=== PATIENT | male | born 1935 | race Caucasian/White ===

== ENCOUNTER 2022-05-30 09:34 | Observation (INO) | payer MEDICARE, BC ==
[2022-05-30 10:17] LABS: #Eosinphils 0.5 thou/uL (0.0-0.7); #Lymphocytes 1.7 thou/uL (1.20-3.40); #Monocytes 0.6 thou/uL (0.11-0.59); #Neutrophils 2.7 thou/uL (1.40-6.50); %Eosinophils 8.9 % (0.0-10.0); %Monocytes 11.2 % (0.0-10.0); %Neutrophils 48.9 % (42.0-75.0); Hemoglobin 12.4 g/dL (14.0-18.0); Mean Corpuscular HGB CONC 32.9 g/dL (32.0-36.0); Mean Corpuscular Hemoglobin 31.9 pg (27.0-31.0); Mean Corpuscular Volume 96.9 fl (78.0-98.0); Mean Platelet Volume 8.2 fL (7.4-10.4); Platelet Count 123 10x3/uL (130-400); RBC Distribution Width 12.6 % (11.5-14.5); Red Blood Cell (RBC) Count 3.89 mill/uL (4.70-6.10); White Blood Cell (WBC) Count 5.5 10x3/uL (4.8-10.8)
[2022-05-30 10:39] LABS: ALT (SGPT) 12 U/L (8-55); AST (SGOT) 23 U/L (5-34); Albumin 3.9 g/dL (3.4-4.8); Alkaline Phosphatase 70 U/L (40-110); Anion Gap 11 mmol/L (10-20); BUN (Urea Nitrogen) 20 mg/dL (8.4-25.7); Bilirubin, Total 0.8 mg/dL (0.2-1.2); Calc. Creatinine Clearance 0 mL/min (70-130); Calcium 8.8 mg/dL (7.8-10.44); Carbon Dioxide 28 mmol/L (23-31); Chloride 109 mmol/L (98-107); Estimated GFR 65; Glucose 88 mg/dL (83-110); Lipase 84 U/L (8-78); Potassium 4.5 mmol/L (3.5-5.1); Protein, Total 6.9 g/dL (5.8-8.1); Sodium 143 mmol/L (136-145)
[2022-05-30 11:02] LABS: CKMB 1.7 ng/mL (0-6.6)
[2022-05-30] MEDS ORDERED: Acetaminophen 325 MG TAB PO PRN (12:40)
[2022-05-30] MEDS ORDERED: Aspirin Chewable 81 MG TAB ONE (16:41)
[2022-05-30 17:58] VITALS: BMI 18.9
[2022-05-30 18:09] LABS: Troponin I 0.026 ng/mL (< 0.028)
[2022-05-30 21:23] LABS: Troponin I 0.034 ng/mL (< 0.028)
[2022-05-31 04:58] LABS: #Eosinphils 0.4 thou/uL (0.0-0.7); #Lymphocytes 1.6 thou/uL (1.20-3.40); #Monocytes 0.6 thou/uL (0.11-0.59); #Neutrophils 2.6 thou/uL (1.40-6.50); %Basophils 0.2 % (0.0-1.0); %Eosinophils 7.4 % (0.0-10.0); %Lymphocytes 30.9 % (21.0-51.0); %Monocytes 10.6 % (0.0-10.0); %Neutrophils 50.8 % (42.0-75.0); Hemoglobin 11.9 g/dL (14.0-18.0); Mean Corpuscular HGB CONC 33.4 g/dL (32.0-36.0); Mean Corpuscular Hemoglobin 32.2 pg (27.0-31.0); Mean Corpuscular Volume 96.7 fl (78.0-98.0); Mean Platelet Volume 8.4 fL (7.4-10.4); Platelet Count 122 10x3/uL (130-400); RBC Distribution Width 12.6 % (11.5-14.5); Red Blood Cell (RBC) Count 3.69 mill/uL (4.70-6.10); White Blood Cell (WBC) Count 5.2 10x3/uL (4.8-10.8)
[2022-05-31 05:10] LABS: Anion Gap 11 mmol/L (10-20); BUN (Urea Nitrogen) 23 mg/dL (8.4-25.7); Calc. Creatinine Clearance 31 mL/min (70-130); Carbon Dioxide 26 mmol/L (23-31); Chloride 109 mmol/L (98-107); Potassium 4.6 mmol/L (3.5-5.1); Sodium 141 mmol/L (136-145)
[2022-05-31 05:11] LABS: Calcium 8.4 mg/dL (7.8-10.44); Estimated GFR 50; Glucose 83 mg/dL (83-110)
[2022-05-31] MEDS ORDERED: Ezetimibe 10 MG TAB PO SCH (09:00)
[2022-05-31] MEDS ORDERED: Aspirin 81 mg Enteric Coated Tablet PO SCH (09:00)
[2022-05-31] MEDS ORDERED: Carvedilol 25 MG TAB PO SCH (09:00)
[2022-05-31] MEDS ORDERED: Aspirin Chewable 81 MG TAB PO SCH (09:00)
[2022-05-31] MEDS ORDERED: Atorvastatin Calcium 40 MG TAB PO SCH (09:00)
[2022-05-31] MEDS ORDERED: Apixaban 2.5 MG TAB PO SCH (09:00)
[2022-05-31] MEDS ORDERED: ADENOSINE 60 MG/20 ML VIAL ONE (11:06)
[2022-05-31 13:17] VITALS: BP 136/63; TEMP 97.8
[2022-06-01] MEDS ORDERED: Digoxin 0.125 MG TAB PO SCH (09:00)
== END 2022-05-31 16:34 | disposition home or self-care (01) ==
LOC: ERS 09:34 → ERHOLD 12:41 → 2SW 17:42
PROVIDERS: ADMIT Internal Medicine; ATTEND Internal Medicine
DX: R07.89 Other chest pain (principal); I25.10 Atherosclerotic heart disease of native coronary artery without angina pectoris; I10 Essential (primary) hypertension; I25.2 Old myocardial infarction; K21.9 Gastro-esophageal reflux disease without esophagitis; Z79.01 Long term (current) use of anticoagulants; Z79.82 Long term (current) use of aspirin; Z79.83 Long term (current) use of bisphosphonates; Z79.899 Other long term (current) drug therapy; Z95.1 Presence of aortocoronary bypass graft; Z95.810 Presence of automatic (implantable) cardiac defibrillator; Z20.822 Contact with and (suspected) exposure to COVID-19
CPT/HCPCS: 71045; 78452; 80048; 80053; 82553; 83690; 84484 ×2; 85025 ×2; 93005; 93017; 93306; 94760; 99285; A9500; G0378 ×3; U0003; U0005; 36415; J0153

== ENCOUNTER 2023-01-22 08:32 | Inpatient (IN) | payer MEDICARE, BC ==
[2023-01-22] MEDS ORDERED: Ketorolac Tromethamine 30 MG/ML VIAL ONE (09:20)
[2023-01-22 09:52] LABS: #Eosinphils 0.6 thou/uL (0.0-0.7); #Neutrophils 3.5 thou/uL (1.40-6.50); %Basophils 0.5 % (0.0-1.0); %Eosinophils 8.6 % (0.0-10.0); %Monocytes 14.5 % (0.0-10.0); %Neutrophils 52.9 % (42.0-75.0); Hematocrit 39.9 % (42.0-52.0); Hemoglobin 12.8 g/dL (14.0-18.0); Mean Corpuscular HGB CONC 32.1 g/dL (32.0-36.0); Mean Corpuscular Hemoglobin 31.6 pg (27.0-31.0); Mean Corpuscular Volume 98.5 fl (78.0-98.0); Platelet Count 187 10x3/uL (130-400); RBC Distribution Width 15.1 % (11.5-14.5); Red Blood Cell (RBC) Count 4.05 mill/uL (4.70-6.10); White Blood Cell (WBC) Count 6.6 10x3/uL (4.8-10.8)
[2023-01-22 10:12] LABS: SARS-CoV-2 NAA Rapid Test Not Detected (NotDetected)
[2023-01-22 10:20] LABS: ALT (SGPT) 15 U/L (8-55); AST (SGOT) 33 U/L (5-34); Albumin 3.9 g/dL (3.4-4.8); Alkaline Phosphatase 97 U/L (40-110); Anion Gap 13 mmol/L (10-20); BUN (Urea Nitrogen) 22 mg/dL (8.4-25.7); Bilirubin, Total 0.5 mg/dL (0.2-1.2); Calc. Creatinine Clearance 0 mL/min (70-130); Calcium 10.9 mg/dL (7.8-10.44); Carbon Dioxide 26 mmol/L (23-31); Chloride 108 mmol/L (98-107); Estimated GFR 38; Globulin 3.6 g/dL (2.4-3.5); Glucose 97 mg/dL (83-110); Potassium 4.5 mmol/L (3.5-5.1); Protein, Total 7.5 g/dL (5.8-8.1); Sodium 142 mmol/L (136-145)
[2023-01-22 10:21] LABS: Bacteria/HPF None Seen HPF (None Seen); Bilirubin Negative (Negative); Blood, Urine 2+ (Negative); CAUTI Indications for Culture Immunosuppressed; Clarity Clear (Clear); Glucose, Urine (Dipstick) Normal (Negative); Ketone, Urine Negative (Negative); Leukocyte Negative Leu/uL (Negative); Nitrite Negative (Negative); Protein, Urine (Dipstick) 100 mg/dL (Neg-Trace); RBC/HPF 0-3 HPF (0-3); Specific Gravity, Urine 1.028 (1.002-1.036); Squamous Epithelial 0-3 HPF (0-3); Urobilinogen Normal mg/dL (Less than 2)
[2023-01-22 10:22] LABS: Urine Culture Reflex Yes Yes
[2023-01-22 10:29] LABS: Troponin I 1.007 ng/mL (< 0.028)
[2023-01-22] MEDS ORDERED: Calcium Carbonate 500 MG ChewTAB PO PRN (11:59)
[2023-01-22] MEDS ORDERED: Senokot S 8.6-50 MG TAB PO PRN (11:59)
[2023-01-22] MEDS ORDERED: Ondansetron PF 4 MG/2 ML Vial IVP PRN (11:59)
[2023-01-22] MEDS ORDERED: Acetaminophen 325 MG TAB PO PRN (11:59)
[2023-01-22] MEDS ORDERED: Furosemide 40 MG/4 ML VIAL ONE (12:28)
[2023-01-22 13:35] LABS: Troponin I 0.878 ng/mL (< 0.028)
[2023-01-22] MEDS: Furosemide 40 MG/4 ML VIAL SLOW IVP SCH (15:57)
[2023-01-22 17:34] LABS: Troponin I 0.817 ng/mL (< 0.028)
[2023-01-22] MEDS: Carvedilol 25 MG TAB PO SCH (18:22)
[2023-01-23 05:59] LABS: #Eosinphils 0.5 thou/uL (0.0-0.7); #Monocytes 0.8 thou/uL (0.11-0.59); %Basophils 0.5 % (0.0-1.0); %Eosinophils 8.7 % (0.0-10.0); %Lymphocytes 26.2 % (21.0-51.0); %Monocytes 13.7 % (0.0-10.0); %Neutrophils 50.6 % (42.0-75.0); Hematocrit 39.3 % (42.0-52.0); Hemoglobin 12.4 g/dL (14.0-18.0); Mean Corpuscular HGB CONC 31.6 g/dL (32.0-36.0); Mean Corpuscular Hemoglobin 31.5 pg (27.0-31.0); Mean Corpuscular Volume 99.7 fl (78.0-98.0); Mean Platelet Volume 10.7 fL (7.4-10.4); Platelet Count 198 10x3/uL (130-400); RBC Distribution Width 15.2 % (11.5-14.5); Red Blood Cell (RBC) Count 3.94 mill/uL (4.70-6.10); White Blood Cell (WBC) Count 5.8 10x3/uL (4.8-10.8)
[2023-01-23 06:06] LABS: Hemoglobin A1c 5.6 % (4.0-6.0)
[2023-01-23] MEDS: Furosemide 40 MG/4 ML VIAL SLOW IVP SCH ×2 (06:24→15:09)
[2023-01-23 06:27] LABS: Digoxin 2.02 ng/mL (0.8-2.0)
[2023-01-23 06:29] LABS: ALT (SGPT) 12 U/L (8-55); AST (SGOT) 22 U/L (5-34); Albumin 3.5 g/dL (3.4-4.8); Alkaline Phosphatase 88 U/L (40-110); Anion Gap 12 mmol/L (10-20); BUN (Urea Nitrogen) 26 mg/dL (8.4-25.7); Bilirubin, Total 0.5 mg/dL (0.2-1.2); Calc. Creatinine Clearance 22 mL/min (70-130); Calcium 10.7 mg/dL (7.8-10.44); Carbon Dioxide 28 mmol/L (23-31); Cardiac Risk 3.8 (Less than 4.5); Chloride 106 mmol/L (98-107); Cholesterol 106 mg/dl (< 200 Desired); Estimated GFR 35; Globulin 2.8 g/dL (2.4-3.5); Glucose 82 mg/dL (83-110); HDL Cholesterol 28 mg/dL (>60 Neg Risk); LDL Cholesterol, Calculated 58 mg/dL; Magnesium 1.9 mg/dL (1.6-2.6); Potassium 3.7 mmol/L (3.5-5.1); Protein, Total 6.3 g/dL (5.8-8.1); Sodium 142 mmol/L (136-145); Triglycerides 102 mg/dL (Less than 150)
[2023-01-23] MEDS: Ezetimibe 10 MG TAB PO SCH (08:33)
[2023-01-23] MEDS: Atorvastatin Calcium 40 MG TAB PO SCH (08:33)
[2023-01-23] MEDS: Aspirin 81 mg Enteric Coated Tablet PO SCH (08:33)
[2023-01-23] MEDS: Carvedilol 25 MG TAB PO SCH ×2 (08:33→15:10)
[2023-01-23] MEDS ORDERED: Digoxin 0.125 MG TAB PO SCH (09:00)
[2023-01-23] MEDS ORDERED: Amiodarone 200 MG TAB PO SCH (09:15)
[2023-01-23] MEDS ORDERED: Polyethylene Glycol 3350 17 GM Packet PO PRN (09:20)
[2023-01-23] MEDS: Amiodarone 200 MG TAB PO SCH (20:16)
[2023-01-24 04:51] LABS: Anion Gap 12 mmol/L (10-20); BUN (Urea Nitrogen) 30 mg/dL (8.4-25.7); Calc. Creatinine Clearance 20 mL/min (70-130); Calcium 10.5 mg/dL (7.8-10.44); Carbon Dioxide 28 mmol/L (23-31); Chloride 105 mmol/L (98-107); Estimated GFR 32; Glucose 94 mg/dL (83-110); Potassium 3.4 mmol/L (3.5-5.1); Sodium 142 mmol/L (136-145)
[2023-01-24] MEDS: Furosemide 40 MG/4 ML VIAL SLOW IVP SCH (05:31)
[2023-01-24] MEDS ORDERED: Potassium Chloride 20 MEQ TAB PO SCH (08:00)
[2023-01-24] MEDS: Ezetimibe 10 MG TAB PO SCH (08:44)
[2023-01-24] MEDS: Aspirin 81 mg Enteric Coated Tablet PO SCH (08:44)
[2023-01-24] MEDS: Carvedilol 25 MG TAB PO SCH ×2 (08:44→16:37)
[2023-01-24] MEDS: Atorvastatin Calcium 40 MG TAB PO SCH (08:44)
[2023-01-24] MEDS: Amiodarone 200 MG TAB PO SCH ×2 (08:45→20:42)
[2023-01-24 10:24] LABS: Phosphorus 3.7 mg/dL (2.3-4.7)
[2023-01-24 22:31] LABS: Creatinine, Urine 91.68 mg/dL (63-166)
[2023-01-25 05:53] LABS: Anion Gap 12 mmol/L (10-20); BUN (Urea Nitrogen) 29 mg/dL (8.4-25.7); Calc. Creatinine Clearance 19 mL/min (70-130); Calcium 10.6 mg/dL (7.8-10.44); Carbon Dioxide 27 mmol/L (23-31); Chloride 104 mmol/L (98-107); Estimated GFR 31; Glucose 94 mg/dL (83-110); Potassium 3.8 mmol/L (3.5-5.1); Sodium 139 mmol/L (136-145)
[2023-01-25] MEDS: Aspirin 81 mg Enteric Coated Tablet PO SCH (09:00)
[2023-01-25] MEDS: Apixaban 2.5 MG TAB PO SCH ×2 (09:00→20:39)
[2023-01-25] MEDS: Ezetimibe 10 MG TAB PO SCH (09:00)
[2023-01-25] MEDS: Amiodarone 200 MG TAB PO SCH ×2 (09:00→20:39)
[2023-01-25] MEDS: Carvedilol 25 MG TAB PO SCH ×2 (09:01→17:49)
[2023-01-25] MEDS: Atorvastatin Calcium 40 MG TAB PO SCH (09:01)
[2023-01-25 15:46] VITALS: BMI 17.6
[2023-01-26 04:44] LABS: #Eosinphils 0.3 thou/uL (0.0-0.7); #Monocytes 0.9 thou/uL (0.11-0.59); #Neutrophils 3.4 thou/uL (1.40-6.50); %Basophils 0.3 % (0.0-1.0); %Eosinophils 5.3 % (0.0-10.0); %Monocytes 15.1 % (0.0-10.0); Hematocrit 34.8 % (42.0-52.0); Hemoglobin 11.3 g/dL (14.0-18.0); Mean Corpuscular HGB CONC 32.5 g/dL (32.0-36.0); Mean Corpuscular Hemoglobin 31.8 pg (27.0-31.0); Mean Platelet Volume 10.5 fL (7.4-10.4); Platelet Count 156 10x3/uL (130-400); RBC Distribution Width 15.2 % (11.5-14.5); Red Blood Cell (RBC) Count 3.55 mill/uL (4.70-6.10); White Blood Cell (WBC) Count 6.1 10x3/uL (4.8-10.8)
[2023-01-26 05:11] LABS: Anion Gap 11 mmol/L (10-20); BUN (Urea Nitrogen) 33 mg/dL (8.4-25.7); Calc. Creatinine Clearance 19 mL/min (70-130); Calcium 10.7 mg/dL (7.8-10.44); Carbon Dioxide 28 mmol/L (23-31); Chloride 105 mmol/L (98-107); Estimated GFR 32; Glucose 94 mg/dL (83-110); Potassium 3.9 mmol/L (3.5-5.1); Sodium 140 mmol/L (136-145)
[2023-01-26] MEDS: Atorvastatin Calcium 40 MG TAB PO SCH (08:58)
[2023-01-26] MEDS: Apixaban 2.5 MG TAB PO SCH (08:58)
[2023-01-26] MEDS: Aspirin 81 mg Enteric Coated Tablet PO SCH (08:58)
[2023-01-26] MEDS: Carvedilol 25 MG TAB PO SCH (08:58)
[2023-01-26] MEDS: Amiodarone 200 MG TAB PO SCH (08:59)
[2023-01-26] MEDS: Ezetimibe 10 MG TAB PO SCH (08:59)
[2023-01-26 12:14] VITALS: BP 122/61; TEMP 97.7
[2023-01-26] MEDS ORDERED: Zoledronic Acid 4 MG in Sodium Chloride 0.9% 100 ML IVPB SCH (13:00)
[2023-01-26] MEDS ORDERED: Calcitonin,Salmon,Synthetic 400 UNITS/2 ML SC SCH (14:15)
[2023-01-27] MEDS ORDERED: Furosemide 20 MG TAB PO SCH (09:00)
[2023-02-06] MEDS ORDERED: Amiodarone 200 MG TAB PO SCH (09:00)
[2023-02-20] MEDS ORDERED: Amiodarone 200 MG TAB PO SCH (09:00)
== END 2023-01-26 15:29 | disposition home or self-care (01) | DRG 280 ==
LOC: ERS 08:32 → SUATTDRO 08:32 → 2NO 11:49
PROVIDERS: ADMIT Internal Medicine; ATTEND Internal Medicine
DX: I13.0 Hypertensive heart and chronic kidney disease with heart failure and stage 1 through stage 4 chronic kidney disease, or unspecified chronic kidney disease (principal); I21.A1 Myocardial infarction type 2; I50.23 Acute on chronic systolic (congestive) heart failure; N17.9 Acute kidney failure, unspecified; J44.9 Chronic obstructive pulmonary disease, unspecified; I25.10 Atherosclerotic heart disease of native coronary artery without angina pectoris; I48.91 Unspecified atrial fibrillation; E78.5 Hyperlipidemia, unspecified; G89.29 Other chronic pain; I48.0 Paroxysmal atrial fibrillation; D63.1 Anemia in chronic kidney disease; E83.52 Hypercalcemia; E87.6 Hypokalemia; N18.30 Chronic kidney disease, stage 3 unspecified; Z95.1 Presence of aortocoronary bypass graft; Z95.810 Presence of automatic (implantable) cardiac defibrillator; Z79.899 Other long term (current) drug therapy; Z98.890 Other specified postprocedural states; Z79.82 Long term (current) use of aspirin; Z20.822 Contact with and (suspected) exposure to COVID-19
CPT/HCPCS: 36415; 71045; 72100; 76770; 80048; 80053; 80061; 80162; 81001; 82306; 82570; 82652; 83036; 83605; 83735; 83880; 83883; 83970; 84100; 84155; 84156; 84165; 84166; 84300; 84443; 84484; 84540; 85025; 87040; 87086; 93005; 93306; 93798; 96372; 96374; 96375; J1650; J1885; J1940

== ENCOUNTER 2023-02-23 09:31 | Inpatient (IN) | payer MEDICARE, BC ==
[2023-02-23 11:37] LABS: Bacteria/HPF None Seen HPF (None Seen); Bilirubin Negative (Negative); Blood, Urine 2+ (Negative); CAUTI Indications for Culture Dysuria,urgency,freq; Clarity Clear (Clear); Glucose, Urine (Dipstick) Normal (Negative); Ketone, Urine Negative (Negative); Leukocyte Negative Leu/uL (Negative); Nitrite Negative (Negative); Protein, Urine (Dipstick) 50 mg/dL (Neg-Trace); RBC/HPF 0-3 HPF (0-3); Specific Gravity, Urine 1.019 (1.002-1.036); Squamous Epithelial 0-3 HPF (0-3); Urobilinogen Normal mg/dL (Less than 2); WBC/HPF 0-3 HPF (0-3); pH, Urine 5.5 (5.0-9.0)
[2023-02-23 11:38] LABS: Urine Culture Reflex No No
[2023-02-23] MEDS ORDERED: Acetaminophen 325 MG TAB PO PRN (12:34)
[2023-02-23] MEDS ORDERED: Ondansetron ODT 4 MG TAB PO PRN (12:34)
[2023-02-23] MEDS ORDERED: traMADol HCl 50 MG TAB PO PRN (16:32)
[2023-02-23] MEDS: Sodium Chloride 0.9% 1,000 ML IV SCH (18:26)
[2023-02-23 19:18] LABS: Creatinine, Urine 85.22 mg/dL (63-166)
[2023-02-24 05:46] LABS: #Eosinphils 0.3 thou/uL (0.0-0.7); #Neutrophils 12.1 thou/uL (1.40-6.50); %Basophils 0.1 % (0.0-1.0); %Eosinophils 2.2 % (0.0-10.0); %Monocytes 6.8 % (0.0-10.0); %Neutrophils 85.8 % (42.0-75.0); Hematocrit 31.9 % (42.0-52.0); Hemoglobin 10.5 g/dL (14.0-18.0); Mean Corpuscular HGB CONC 32.9 g/dL (32.0-36.0); Mean Corpuscular Hemoglobin 32.1 pg (27.0-31.0); Mean Corpuscular Volume 97.6 fl (78.0-98.0); Platelet Count 200 10x3/uL (130-400); RBC Distribution Width 15.4 % (11.5-14.5); Red Blood Cell (RBC) Count 3.27 mill/uL (4.70-6.10); White Blood Cell (WBC) Count 14.1 10x3/uL (4.8-10.8)
[2023-02-24] MEDS: Sodium Chloride 0.9% 1,000 ML IV SCH ×2 (06:03→20:16)
[2023-02-24 06:12] LABS: ALT (SGPT) 93 U/L (8-55); AST (SGOT) 62 U/L (5-34); Albumin 3.1 g/dL (3.4-4.8); Alkaline Phosphatase 66 U/L (40-110); Anion Gap 13 mmol/L (10-20); BUN (Urea Nitrogen) 72 mg/dL (8.4-25.7); Bilirubin, Total 0.5 mg/dL (0.2-1.2); Calc. Creatinine Clearance 12 mL/min (70-130); Calcium 7.9 mg/dL (7.8-10.44); Carbon Dioxide 24 mmol/L (23-31); Chloride 109 mmol/L (98-107); Estimated GFR 17; Globulin 2.2 g/dL (2.4-3.5); Glucose 93 mg/dL (83-110); Potassium 3.5 mmol/L (3.5-5.1); Protein, Total 5.3 g/dL (5.8-8.1); Sodium 142 mmol/L (136-145)
[2023-02-24] MEDS: Dexamethasone 4 MG TAB PO SCH (09:38)
[2023-02-24 13:23] VITALS: BMI 17.1
[2023-02-24] MEDS: Carvedilol 25 MG TAB PO SCH (20:16)
[2023-02-25] MEDS: Dexamethasone 4 MG TAB PO SCH (08:46)
[2023-02-25] MEDS: Sodium Chloride 0.9% 1,000 ML IV SCH ×2 (08:48→20:04)
[2023-02-25] MEDS: Carvedilol 25 MG TAB PO SCH ×2 (08:53→20:05)
[2023-02-25] MEDS ORDERED: Atorvastatin Calcium 40 MG TAB PO SCH (09:00)
[2023-02-25] MEDS ORDERED: Ezetimibe 10 MG TAB PO SCH (09:00)
[2023-02-25 10:45] LABS: Anion Gap 15 mmol/L (10-20); BUN (Urea Nitrogen) 62 mg/dL (8.4-25.7); Calc. Creatinine Clearance 14 mL/min (70-130); Calcium 7.7 mg/dL (7.8-10.44); Carbon Dioxide 17 mmol/L (23-31); Chloride 111 mmol/L (98-107); Estimated GFR 21; Glucose 215 mg/dL (83-110); Potassium 4.1 mmol/L (3.5-5.1); Sodium 139 mmol/L (136-145)
[2023-02-25] MEDS: Ezetimibe 10 MG TAB PO SCH (20:05)
[2023-02-25] MEDS: Atorvastatin Calcium 40 MG TAB PO SCH (20:05)
[2023-02-26 06:07] LABS: #Eosinphils 0.1 thou/uL (0.0-0.7); #Monocytes 0.6 thou/uL (0.11-0.59); #Neutrophils 16.2 thou/uL (1.40-6.50); %Basophils 0.2 % (0.0-1.0); %Eosinophils 0.4 % (0.0-10.0); %Lymphocytes 3.4 % (21.0-51.0); %Monocytes 3.1 % (0.0-10.0); %Neutrophils 90.4 % (42.0-75.0); Hematocrit 38.3 % (42.0-52.0); Hemoglobin 12.7 g/dL (14.0-18.0); Mean Corpuscular HGB CONC 33.2 g/dL (32.0-36.0); Mean Corpuscular Hemoglobin 32.5 pg (27.0-31.0); Mean Platelet Volume 10.6 fL (7.4-10.4); Platelet Count 250 10x3/uL (130-400); RBC Distribution Width 15.8 % (11.5-14.5); Red Blood Cell (RBC) Count 3.91 mill/uL (4.70-6.10); White Blood Cell (WBC) Count 17.9 10x3/uL (4.8-10.8)
[2023-02-26 06:37] LABS: Anion Gap 17 mmol/L (10-20); BUN (Urea Nitrogen) 63 mg/dL (8.4-25.7); Calc. Creatinine Clearance 15 mL/min (70-130); Calcium 7.9 mg/dL (7.8-10.44); Carbon Dioxide 18 mmol/L (23-31); Chloride 112 mmol/L (98-107); Estimated GFR 24; Glucose 120 mg/dL (83-110); Potassium 4.8 mmol/L (3.5-5.1); Sodium 142 mmol/L (136-145)
[2023-02-26] MEDS: Carvedilol 25 MG TAB PO SCH ×2 (08:38→21:04)
[2023-02-26] MEDS: Dexamethasone 4 MG TAB PO SCH (09:18)
[2023-02-26] MEDS: Sodium Chloride 0.9% 1,000 ML IV SCH (09:21)
[2023-02-26] MEDS ORDERED: Sodium Chloride 0.9% 1,000 ML IV SCH (10:42)
[2023-02-26 15:13] LABS: IFE-Serum Interpretation Note: (.); IgA - Total IgA (Sendout) 21 mg/dL (61-437); Immunoglobulin - G (Sendout) 629 mg/dL (603-1613); Immunoglobulin - M (Sendout) 12 mg/dL (15-143)
[2023-02-26 16:13] LABS: A/G Ratio 1.4 (0.7-1.7); Albumin 2.7 g/dL (2.9-4.4); Alpha 1 0.2 g/dL (0.0-0.4); Alpha 2 0.6 g/dL (0.4-1.0); Beta 0.6 g/dL (0.7-1.3); Gamma 0.6 g/dL (0.4-1.8); M-Spike Note: g/dL (Not Observed)
[2023-02-26] MEDS ORDERED: Furosemide 40 MG/4 ML VIAL SLOW IVP SCH (16:30)
[2023-02-26 20:37] LABS: Beta-2-Microglobulin 5.7 mg/L (0.6-2.4)
[2023-02-26] MEDS: Ezetimibe 10 MG TAB PO SCH (21:04)
[2023-02-26] MEDS: Atorvastatin Calcium 40 MG TAB PO SCH (21:04)
[2023-02-26] MEDS: Ipratropium/Albuterol 3 ML NEB NEB PRN (21:32)
[2023-02-27] MEDS ORDERED: Furosemide 20 MG/2 ML VIAL SLOW IVP SCH ×2 (01:00→09:30)
[2023-02-27] MEDS: Ipratropium/Albuterol 3 ML NEB NEB PRN ×3 (02:04→22:39)
[2023-02-27 05:11] LABS: #Monocytes 0.5 thou/uL (0.11-0.59); #Neutrophils 16.2 thou/uL (1.40-6.50); %Basophils 0.1 % (0.0-1.0); %Lymphocytes 1.6 % (21.0-51.0); %Monocytes 2.9 % (0.0-10.0); %Neutrophils 93.5 % (42.0-75.0); Hemoglobin 12.5 g/dL (14.0-18.0); Mean Corpuscular HGB CONC 32.9 g/dL (32.0-36.0); Mean Corpuscular Hemoglobin 32.2 pg (27.0-31.0); Mean Corpuscular Volume 97.9 fl (78.0-98.0); Mean Platelet Volume 10.4 fL (7.4-10.4); Platelet Count 219 10x3/uL (130-400); RBC Distribution Width 15.7 % (11.5-14.5); Red Blood Cell (RBC) Count 3.88 mill/uL (4.70-6.10); White Blood Cell (WBC) Count 17.3 10x3/uL (4.8-10.8)
[2023-02-27 05:31] LABS: Anion Gap 14 mmol/L (10-20); BUN (Urea Nitrogen) 70 mg/dL (8.4-25.7); Calc. Creatinine Clearance 15 mL/min (70-130); Calcium 7.7 mg/dL (7.8-10.44); Carbon Dioxide 20 mmol/L (23-31); Chloride 112 mmol/L (98-107); Estimated GFR 23; Glucose 132 mg/dL (83-110); Potassium 4.2 mmol/L (3.5-5.1); Sodium 142 mmol/L (136-145)
[2023-02-27] MEDS: Dexamethasone 4 MG TAB PO SCH (08:33)
[2023-02-27] MEDS: valACYclovir 500 MG TAB PO SCH (08:33)
[2023-02-27] MEDS: Carvedilol 25 MG TAB PO SCH ×2 (08:34→21:15)
[2023-02-27 15:14] LABS: Kappa Light Chains 7.4 mg/L (3.3-19.4)
[2023-02-27] MEDS: Ezetimibe 10 MG TAB PO SCH (21:15)
[2023-02-27] MEDS: Apixaban 2.5 MG TAB PO SCH (21:15)
[2023-02-27] MEDS: Atorvastatin Calcium 40 MG TAB PO SCH (21:15)
[2023-02-28] MEDS: Furosemide 20 MG/2 ML VIAL SLOW IVP SCH ×2 (04:57→14:38)
[2023-02-28 05:35] LABS: #Monocytes 0.4 thou/uL (0.11-0.59); #Neutrophils 15.1 thou/uL (1.40-6.50); %Basophils 0.1 % (0.0-1.0); %Lymphocytes 1.9 % (21.0-51.0); %Monocytes 2.5 % (0.0-10.0); %Neutrophils 93.5 % (42.0-75.0); Hemoglobin 11.4 g/dL (14.0-18.0); Mean Corpuscular HGB CONC 33.5 g/dL (32.0-36.0); Mean Corpuscular Hemoglobin 32.4 pg (27.0-31.0); Mean Corpuscular Volume 96.6 fl (78.0-98.0); Mean Platelet Volume 10.5 fL (7.4-10.4); Platelet Count 184 10x3/uL (130-400); RBC Distribution Width 15.6 % (11.5-14.5); Red Blood Cell (RBC) Count 3.52 mill/uL (4.70-6.10); White Blood Cell (WBC) Count 16.1 10x3/uL (4.8-10.8)
[2023-02-28 07:19] LABS: Anion Gap 13 mmol/L (10-20); BUN (Urea Nitrogen) 70 mg/dL (8.4-25.7); Calc. Creatinine Clearance 14 mL/min (70-130); Calcium 7.4 mg/dL (7.8-10.44); Carbon Dioxide 23 mmol/L (23-31); Chloride 109 mmol/L (98-107); Estimated GFR 22; Glucose 130 mg/dL (83-110); Sodium 141 mmol/L (136-145)
[2023-02-28] MEDS ORDERED: Furosemide 20 MG/2 ML VIAL SLOW IVP SCH (09:00)
[2023-02-28] MEDS: Carvedilol 25 MG TAB PO SCH (09:20)
[2023-02-28] MEDS: Amiodarone 200 MG TAB PO SCH (09:20)
[2023-02-28] MEDS: valACYclovir 500 MG TAB PO SCH (09:20)
[2023-02-28] MEDS: Apixaban 2.5 MG TAB PO SCH ×2 (09:21→20:31)
[2023-02-28] MEDS: Aspirin 81 mg Enteric Coated Tablet PO SCH (09:21)
[2023-02-28] MEDS: Carvedilol 6.25 MG TAB PO SCH (20:31)
[2023-02-28] MEDS: Ezetimibe 10 MG TAB PO SCH (20:31)
[2023-02-28] MEDS: Atorvastatin Calcium 40 MG TAB PO SCH (20:31)
[2023-03-01] MEDS ORDERED: Dexamethasone Sod Phosphate 20 MG in Sodium Chloride 0.9% 50 ML IVPB SCH (00:01)
[2023-03-01] MEDS: Furosemide 20 MG/2 ML VIAL SLOW IVP SCH ×2 (06:00→15:11)
[2023-03-01 06:07] LABS: #Monocytes 0.7 thou/uL (0.11-0.59); #Neutrophils 14.6 thou/uL (1.40-6.50); %Basophils 0.1 % (0.0-1.0); %Monocytes 4.3 % (0.0-10.0); %Neutrophils 92.2 % (42.0-75.0); Hematocrit 34.9 % (42.0-52.0); Hemoglobin 11.7 g/dL (14.0-18.0); Mean Corpuscular HGB CONC 33.5 g/dL (32.0-36.0); Mean Corpuscular Hemoglobin 32.7 pg (27.0-31.0); Mean Corpuscular Volume 97.5 fl (78.0-98.0); Mean Platelet Volume 10.2 fL (7.4-10.4); Platelet Count 149 10x3/uL (130-400); RBC Distribution Width 15.5 % (11.5-14.5); Red Blood Cell (RBC) Count 3.58 mill/uL (4.70-6.10); White Blood Cell (WBC) Count 15.9 10x3/uL (4.8-10.8)
[2023-03-01 06:31] LABS: Anion Gap 12 mmol/L (10-20); BUN (Urea Nitrogen) 63 mg/dL (8.4-25.7); Calc. Creatinine Clearance 16 mL/min (70-130); Calcium 7.1 mg/dL (7.8-10.44); Carbon Dioxide 24 mmol/L (23-31); Chloride 109 mmol/L (98-107); Estimated GFR 26; Glucose 96 mg/dL (83-110); Potassium 3.7 mmol/L (3.5-5.1); Sodium 141 mmol/L (136-145)
[2023-03-01] MEDS ORDERED: Potassium Chloride 10 MEQ TAB PO SCH (09:00)
[2023-03-01] MEDS: Carvedilol 6.25 MG TAB PO SCH ×3 (09:16→19:48)
[2023-03-01] MEDS: Amiodarone 200 MG TAB PO SCH (09:16)
[2023-03-01] MEDS: Apixaban 2.5 MG TAB PO SCH ×2 (09:16→19:48)
[2023-03-01] MEDS: valACYclovir 500 MG TAB PO SCH (09:16)
[2023-03-01] MEDS: Aspirin 81 mg Enteric Coated Tablet PO SCH (09:16)
[2023-03-01] MEDS: Ezetimibe 10 MG TAB PO SCH (19:48)
[2023-03-01] MEDS: Atorvastatin Calcium 40 MG TAB PO SCH (19:48)
[2023-03-02] MEDS: Furosemide 20 MG/2 ML VIAL SLOW IVP SCH ×2 (06:19→14:58)
[2023-03-02] MEDS ORDERED: Potassium Chloride 10 MEQ TAB PO SCH (08:00)
[2023-03-02] MEDS: Carvedilol 6.25 MG TAB PO SCH ×2 (08:53→14:58)
[2023-03-02] MEDS: valACYclovir 500 MG TAB PO SCH (08:54)
[2023-03-02] MEDS: Apixaban 2.5 MG TAB PO SCH (08:54)
[2023-03-02] MEDS: Aspirin 81 mg Enteric Coated Tablet PO SCH (08:54)
[2023-03-02] MEDS: Amiodarone 200 MG TAB PO SCH (08:55)
[2023-03-02 09:14] LABS: #Monocytes 0.1 thou/uL (0.11-0.59); #Neutrophils 17.1 thou/uL (1.40-6.50); %Basophils 0.1 % (0.0-1.0); %Lymphocytes 1.2 % (21.0-51.0); %Monocytes 0.7 % (0.0-10.0); Hematocrit 39.8 % (42.0-52.0); Hemoglobin 13.1 g/dL (14.0-18.0); Mean Corpuscular HGB CONC 32.9 g/dL (32.0-36.0); Mean Corpuscular Hemoglobin 31.9 pg (27.0-31.0); Mean Corpuscular Volume 96.8 fl (78.0-98.0); Mean Platelet Volume 10.3 fL (7.4-10.4); Platelet Count 154 10x3/uL (130-400); RBC Distribution Width 15.4 % (11.5-14.5); Red Blood Cell (RBC) Count 4.11 mill/uL (4.70-6.10); White Blood Cell (WBC) Count 17.6 10x3/uL (4.8-10.8)
[2023-03-02 09:37] LABS: Anion Gap 16 mmol/L (10-20); BUN (Urea Nitrogen) 61 mg/dL (8.4-25.7); Calc. Creatinine Clearance 15 mL/min (70-130); Calcium 7.3 mg/dL (7.8-10.44); Carbon Dioxide 22 mmol/L (23-31); Chloride 108 mmol/L (98-107); Estimated GFR 24; Glucose 140 mg/dL (83-110); Potassium 3.8 mmol/L (3.5-5.1); Sodium 142 mmol/L (136-145)
[2023-03-02 14:58] VITALS: BP 133/64
[2023-03-02 15:06] VITALS: TEMP 97.8
[2023-03-03] MEDS ORDERED: Furosemide 40 MG TAB PO SCH (07:30)
[2023-03-03] MEDS ORDERED: Furosemide 20 MG TAB PO SCH (14:00)
== END 2023-03-02 15:53 | disposition home or self-care (01) | DRG 840 ==
LOC: ERS 09:31 → T4-A 12:42
PROVIDERS: ADMIT Family Medicine; ATTEND Internal Medicine
PROC: 07DR3ZX Extraction of Iliac Bone Marrow, Percutaneous Approach, Diagnostic (ICD-10-PCS; principal; 2023-02-26)
DX: C90.00 Multiple myeloma not having achieved remission (principal); I50.23 Acute on chronic systolic (congestive) heart failure; N17.9 Acute kidney failure, unspecified; I13.0 Hypertensive heart and chronic kidney disease with heart failure and stage 1 through stage 4 chronic kidney disease, or unspecified chronic kidney disease; N18.4 Chronic kidney disease, stage 4 (severe); J44.9 Chronic obstructive pulmonary disease, unspecified; Z66 Do not resuscitate; E78.5 Hyperlipidemia, unspecified; D72.829 Elevated white blood cell count, unspecified; D63.1 Anemia in chronic kidney disease; R53.81 Other malaise; R53.1 Weakness; I48.0 Paroxysmal atrial fibrillation; E88.09 Other disorders of plasma-protein metabolism, not elsewhere classified; I25.10 Atherosclerotic heart disease of native coronary artery without angina pectoris; Z79.82 Long term (current) use of aspirin; Z79.899 Other long term (current) drug therapy
CPT/HCPCS: 20225; 36415; 71045; 72131; 77012; 77014; 77280; 77290; 77307; 77332; 77334; 77412; 80048; 80053; 81001; 82040; 82232; 82570; 83615; 83735; 83880; 83883; 83970; 84100; 84155; 84156; 84165; 85025; 85097; 86334; 86335; 88184; 88185; 88189; 88237; 88264; 88280; 88305; 88311; 88313; 88341; 88342; 88365; 93005; 94640; 96360; J1100; J1940; J7050; J7620; J8540; J9041